=== PATIENT | female | born 1955 | race Caucasian/White ===

== ENCOUNTER 2019-05-29 02:26 | Inpatient (IN) | payer OTHER ==
[~2019-05-29] VITALS: Ht 162.5 cm; Wt 63.5 kg
[2019-05-29] MEDS ORDERED: VITAMIN D5000 UNI1 PO (02:58)
[2019-05-29] MEDS ORDERED: BRAIN MIGHT-DH1 EACH PO (02:58)
--- NOTE | 2019-05-29 08:55 | NUR ---
MORRIS JUAREZ a 63 year old F admitted via stretcher from the ADMITTING as a emergency 72 hr. hold admission. Arrived on unit at 0855. ALLERGIES: IVP DYE, DOXYCYCLINE, IODINE, LATEX, SILVER SULFADIAZINE, MOXIFLOXACIN, TETRACYCLINES. Vital signs are: 98.4-91-17 138/76 SPO2 99%RA. The client signed the following forms with stated understanding: Authorization For The Release of Medical Information, Clothing List, Consent and Release Forms/Receipt of Rights, Acknowledgement of Advance Directive Information, Behavioral Health Consent Form, and Informed Consent of Medications. Admitted under the services of Dr. ADRIENNE MYERS,[facility]. A search was conducted and hazardous articles were removed. Client was oriented to the unit. MAT GUTIERREZ
--- NOTE | 2019-05-29 09:06 | NUR ---
DR. GABRIEL NOTIFIED OF NEW ADMISSION, ALL MEDICATIONS AND DIAGNOSIS UPDATED FOR REVIEW. PATIENT WILL BE UNDER THE CARE OF DR. GABRIEL.
[2019-05-29 09:18] VITALS: BP 138/76
--- NOTE | 2019-05-29 12:27 | NUR ---
psychosocial hx completed this date
--- NOTE | 2019-05-29 16:01 | NUR ---
PM/LEISURE SKILLS/MUSIC PT ATTENDED AND PARTICIPATED IN GROUP BY PAINTING AND LISTENING TO MUSIC. PT PLEASANT AND ON TASK ALTHOUGH PT DID EXPRESS CONFUSION BY FORGETTING SOME WORDS IN CONVERSATION. PT WILL CONTINUE TO ATTEND AND PARTICIPATE IN FUTURE RGOUP SESSIONS TO BEST OF ABILITY.
[2019-05-29 17:05] LABS: BILIRUBIN NEGATIVE (NEGATIVE); BLOOD NEGATIVE (NEGATIVE); CLARITY CLEAR (CLEAR); COLOR YELLOW (YELLOW); GLUCOSE NEGATIVE (NEGATIVE); KETONE NEGATIVE (NEGATIVE); LEUKO ESTERASE NEGATIVE (NEGATIVE); NITRITE NEGATIVE (NEGATIVE); PH 5.5 (5.0-9.0); SPECIFIC GRAVITY 1.025 (1.005-1.030)
[2019-05-29 17:13] LABS: BACTERIA 1+; EPITHELIAL CELLS 21-30; MUCOUS 2+
[2019-05-29 19:52] VITALS: BP 125/68
--- NOTE | 2019-05-29 21:36 | NUR ---
Patient alert to self only with confusion. ST/LT memory deficits noted. No signs of any hallucinations noted at this time. Patient compliant with medications without any difficulty. Provide 1:1 for emotional support. Redirected/reoriented when needed/appropriate. Plan to continue medication compliance and continue to provide emotional support. Also continue to redirect/reorient when needed/appropriate. Q 15 minute safety checks continued and maintained. See [facility] flowsheet for further documentation.
--- NOTE | 2019-05-30 00:32 | NUR ---
24 HR chart check completed.
--- NOTE | 2019-05-30 05:07 | NUR ---
Patient slept approx. 6 hours throughout shift. Q 15 minute safety checks throughout shift.
[2019-05-30 06:11] LABS: BASO % 0.3 % (0.0-1.0); EOS # 0.1 10*3/uL (0.0-0.4); EOS % 1.4 % (1.0-4.0); HEMATOCRIT 36.9 % (37.0-47.0); HEMOGLOBIN 12.4 g/dl (12.0-16.0); LYMPH # 3.3 10*3/uL (1.3-4.4); LYMPH % 45.9 % (27.0-41.0); MEAN CELL VOLUME 97.6 fl (81.0-99.0); MEAN CORPUSCULAR HGB 32.8 pg (27.0-31.0); MEAN CORPUSCULAR HGB CONC 33.6 g/dl (33.0-37.0); MONO # 0.7 10*3/uL (0.1-1.0); MONO % 9.7 % (3.0-9.0); NEUT % 42.4 % (47.0-73.0); PLATELET COUNT AUTOMATED 286 10*3/uL (130-400); RED BLOOD COUNT 3.78 10*6/uL (4.10-5.10); RED CELL DISTRI WIDTH 12.3 % (0-14.5); WHITE BLOOD COUNT 7.2 10*3/uL (4.8-10.8)
[2019-05-30 06:28] LABS: ALBUMIN 3.5 gm/dl (3.1-4.5); BUN 12 mg/dl (7-24); CHLORIDE 105 mmol/L (98-107); CHOLESTEROL 205 mg/dL (<200); CREATININE 0.69 mg/dL (0.55-1.02); POTASSIUM 3.7 mmol/L (3.5-5.1); SGOT/AST 28 IU/L (3-35); SGPT/ALT 29 U/L (12-78); SODIUM 140 mmol/L (136-145); TRIGLYCERIDES 146 mg/dl (<150); VLDL CHOLESTEROL 29 mg/dL (6-40)
[2019-05-30 06:38] LABS: ALKALINE PHOSPHATASE 46 U/L (45-117); HDL CHOLESTEROL 36 mg/dl (40-60); LDL CHOLESTEROL 140 mg/dL (9-159); TOTAL PROTEIN 6.4 gm/dL (6.4-8.2)
[2019-05-30 07:30] LABS: VITAMIN D, 25-HYDROXY 41.2 ng/mL (30-100)
[2019-05-30 08:01] VITALS: BP 127/63
--- NOTE | 2019-05-30 10:44 | NUR ---
P- ALERT TO SELF ONLY; CONFUSION AND ST/LT MEMORY DEFICITS NOTED. TEARFUL AT TIMES. I- ASSESS MOOD, ORIENTATION, SI/HI, HALLUCINATIONS, DELUSIONS OR PAIN. 1:1 THERAPEUTIC INTERACTION WITH EMOTIONAL SUPPORT AND VENTILATION OF FEELINGS PROVIDED. PROVIDE WITH MEDICATIONS ON TIME WITH EDUCATION ON EACH. OFFER COPING TECHNIQUES. ENCOURAGE SOCIALZIATION WITH PEERS AND STAFF. REORIENT FREQUENTLY WHEN CONFUSION IS NOTED. ENCOURAGE TO ATTEND/PARTICIPATE IN GROUP THERAPIES FOR EMOTIONAL SUPPORT AND SOCIALIZATION. R- REMAINS ALERT TO PERSON EVEN WITH REORIENTATION PROVIDED. WHEN ASSESS IF ALERT TO TIME, PLACE OR SITUATION PT RESPONDED WITH "OH, I JUST CANT EVER REMEMBER THOSE THINGS". ST/LT MEMORY DEFICITS. PT STATES THAT SHE IS IN A VERY GOOD MOOD TODAY, SHE JUST IS READY TO GO HOME TO HER . PT BECAME TEARFUL WHEN TALKING ABOUT HER AND SAID SHE REALLY MISSES HIM AND READY TO GO HOME TO HIM. 1:1 THERPEUTIC INTERACTION EFFECTIVE. MED COMPLIANT. PT UTILIZE DEEP BREATHING WHEN TEARFUL. ATTEND/PARTICIPATE IN GROUP THERAPY. INTERACTIVE WITH PEERS AND STAFF. GAIT STEADY WHILE AMBULATING. DENIES SI/HI, HALLUCINATIONS, OR PAIN. NO S/S OF INTERACTING WITH INTERNAL STIMULI. NO DELUSIONAL THOUGHT PROCESS NOTED. NO S/S OF DSITRESS NOTED. RESPS EVEN AND UNLABORED ON ROOM AIR. MAKES NEEDS KNOWN. EATING AND DRINKING ADEQUATELY. P- ASSESS MOOD, ORIENTATION, HALLUCINATIONS, DELUSIONS, SI/HI OR PAIN EVERY SHIFT. PROVIDE WITH MEDICATIONS ON TIME WITH EDUCATION ON EACH. ENCOURAGE TO ATTEND/PARTICIPATE IN GROUP THERAPY FOR EMOTIONAL SUPPORT AND SOCIALIZATION. PROVIDE 1:1 THERAPEUTIC INTERACTION WITH EMOTIONAL SUPPORT AND VENTILATION OF FEELINGS WHEN NECESSARY. ENCOURAGE TO UTILIZE COPING TECHNIQUES WHEN TEARFUL. Q15 MINUTE CHECKS MAINTAINED FOR SAFETY.
--- NOTE | 2019-05-30 12:24 | NUR ---
AM GROUP PT ATTENDED AND PARTICIPATED TO BEST OF PT ABILITY. PT IN NEED OF ASSISTANCE WITH SPELLING PT FORGETTING HOW TO SPELL AND BEGAN SPELLING "WATER" WHEN SHE MEANT TO RIGHT "FAMILY" AND ASKED HOW TO SPELL ALL OF THE WORDS DURING ACTIVITY. PT PLEASANT AND ON TASK AT THIS TIME STATING "I EMJOY THIS IT IS RELAXING" PT WILL CONITNUE TO ATTEND AN DPARTICIPATE TO BEST OF ABILITY IN FUTURE GROUP SESSIONS.
--- NOTE | 2019-05-30 12:26 | NUR ---
VIT. B12 GIVEN IN R DELTOID PER ORDER. PT TOLERATED VERY WELL.
--- NOTE | 2019-05-30 13:47 | NUR ---
Shift chart check completed.
[2019-05-30 20:00] VITALS: BP 139/78
--- NOTE | 2019-05-30 21:24 | NUR ---
24 HR chart check completed.
--- NOTE | 2019-05-30 22:43 | NUR ---
P-CONFUSION I-ENCOURAGE VENTILATION OF FEELINGS & PROVIDE EMOTIONAL SUPPORT. ADMINISTER MEDS, MONITOR SLEEP. R-MOOD IS STABLE & PLEASANT. ALERT TO PERSON ONLY. REMAINS CONFUSED DESPITE REORIENTATION & STATED, "I JUST CANT REMEMBER THAT STUFF". SHORT/FCI MEMORY DEFICITS. STATED THAT SHE "FEELS MUCH BETTER & MY MOOD IS GREAT. I JUST WANT TO GO HOME." ATE HS SNACK. COMPLIANT WITH MEDS. INDEPENDENT. ABLE TO MAKE NEEDS KNOWN. SOCIALIZING PLEASANTLY WITH PEERS. P-CONTINE TO MONITOR & PROVIDE PHYSICAL ASSISTANCE & EMOTIONAL SUPPORT NEEDED.
--- NOTE | 2019-05-31 00:59 | NUR ---
PT AWAKE AT THIS TIME. INFORMED STAFF THAT SHE "COULDNT SLEEP DUE TO NOISE & COMMOTION FROM 2 MALE PATIENTS. I JUST WANT TO LEAVE". PT TEARFUL WITH NOTED ANXIETY. REASSURANCE PROVIDED TO PT REGARDING HER SAFETY & SHE WAS RECEPTIVE. OFFERED & RECEIVED ATIVAN 1 MG PO @ 0055.
--- NOTE | 2019-05-31 04:39 | NUR ---
ATIVAN WAS EFFECTIVE & PT HAS SLEPT PAST 0145
--- NOTE | 2019-05-31 07:44 | NUR ---
PATIENT SITTING IN DINING ROOM WITH PEERS, EATING BREAKFAST. NO S/S OF DISTRESS NOTED. RESPS EVEN AND UNLABORED ON ROOM AIR.
[2019-05-31 08:00] VITALS: BP 128/72
--- NOTE | 2019-05-31 08:00 | NUR ---
Treatment Plan meeting with Dr. Fields, RN, AT, SW and Insurance Adjustor. Plan for discharge at the end of the week, beginning of next week. Pt. will return home at discharge.
--- NOTE | 2019-05-31 08:33 | NUR ---
Nursing screen and Occupational Therapy referral received. Thank you. Lauren Elmore OTR/L
--- NOTE | 2019-05-31 09:12 | NUR ---
PHYSICAL THERAPY Nursing screen received and chart reviewed. Physical therapy referral received. Thank you. Rahel Alva,PT,DPT.
--- NOTE | 2019-05-31 09:58 | NUR ---
Met with pt this AM as pt was tearful. Pt stated that she was missing her home and her . Empathized with pt and offered support. Confirmed to pt that she would be at [facility] for only a few days. Pt was agreeable to this account underwriter calling pt's to see when he plans on visiting. Left a voicmail message for him and informed pt of this. Sat with pt as she shared about her and her marriage. Pt calmed and voiced understanding that she will discharge in a vew days. Noted that pt has some short-term memory loss. However, she is aware that she is in the hospital.
--- NOTE | 2019-05-31 11:22 | NUR ---
CLINICALS FAXED TO [place] AT [phone] FOR AUTHORAZATION. WILL WAIT FOR REPLY.
--- NOTE | 2019-05-31 11:38 | NUR ---
AM GROUP/EXERCISE AND PARACHUTE PT ATTENDED AND PARTICIPATED IN MORNING GROUP THERAPY. PT EXHIBITED MILD CONFUSION BUT WAS PLEASANT AND ON TASK
--- NOTE | 2019-05-31 12:51 | NUR ---
SPEECH PATHOLOGY Nursing screen completed. This dept. will be available for consult if needs arise. CALLI CAMACHO MSCCC-HISTOPATHOLOGIST
--- NOTE | 2019-05-31 13:06 | NUR ---
Shift chart check completed.
--- NOTE | 2019-05-31 13:08 | NUR ---
P- ALERT TO NAME ONLY. CONFUSION AND ST/LT MEMORY DEFICITS NOTED. TEARFUL AT TIMES. PT EXPRESSING THAT SHE REALLY MISSES HER AND READY TO GO HOME. I- ASSESS MOOD, ORIENTATION, HALLUCINATIONS, DELUSIONS OR PAIN. REORIENT FREQUENTLY WHEN CONFUSION IS NOTED. PROVIDE MEDICATIONS ON TIME WITH EDUCAITON ON EACH. 1:1 THERAPEUTIC INTERACTION WITH EMOTIONAL SUPPORT AND VENTILATION OF FEELINGS PROVIDED. ENCOURAGE TO UTILIZE TAUGHT COPING TECHNIQUES. REASSURE PATIENT FREQUENTLY. R- ALERT TO NAME ONLY. WHEN ASSESS ORIENTATION ON DATE OF , PLACE, TIME AND SITUATION PATIENT STATED "I'M SORRY, I REALLY JUST DONT KNOW". REORIENTATION EFFECTIVE FOR A SHORT AMOUNT OF TIME. PT STATES HER MOOD IS GOOD, SHE JUST REALLY WOULD LIKE TO GO HOME TO HER . PT BECOMES TEARFUL WHEN EXPRESSING WANTING TO GO HOME AND EXPRESSING HOW SHE MISSES HER . PT DENIES SI/HI, HALLUCINATIONS OR PAIN. NO S/S OF INTERACTING WITH INTERNAL STIMUI. NO DELUSIONAL THOUGHT PROCESS NOTED. NO S/S OF DISTRESS NOTED. RESPS EVEN AND UNLABORED ON ROOM AIR. EATING AND DRINKING ADEQUATELY. GAIT STEADY WHILE AMBULATING. MAKES NEEDS KNOWN. 1:1 THERAPEUTIC INTERACTION, DEEP BREATHING, AND REASSURANCE EFFECTIVE WHEN TEARFUL. INTEARCTING WITH PEERS AND STAFF. ATTEND/PARTICIPATE IN GROUP THERAPY. MED COMPLIANT. P- ASSESS MOOD, ORIENTATION, SI/HI, HALLUCINATINOS, DELUSIONS OR PAIN EVERY SHIFT. PROVIDE MEDICATIONS ON TIME WITH EDUCATION ON EACH. 1:1 THERAPEUTIC INTERACTION WITH EMOTIONAL SUPPORT AND VENTILATION OF FEELINGS PROVIDED WHEN NECESSARY. ENCOURAGE TO UTILIZE COPING TECHNIQUES. REASSURE FREQUENTLY. Q15 MINUTE CHECKS MAINTAINED FOR SAFETY.
--- NOTE | 2019-05-31 13:37 | NUR ---
Occupational Therapy referral received and screem completed. Patient admitted to [facility] as an involuntary admission with brief psychotic disorder. Patient was observed independently moving throughout the 3N UNIT without a device. Nursing reports she is independent in ADLs. At this time no further OT indicated. Discharge OT referral. Thank you. Lauren Elmore OTR/Shreya
--- NOTE | 2019-05-31 13:37 | NUR ---
PHYSICAL THERAPY Physical therapy evaluation attempted, screen complete. Patient is independently walking throughout U and does not require skilled PT services at this time. Discharge PT orders. Thank you. Rahel Alva,PT,DPT
--- NOTE | 2019-05-31 15:22 | NUR ---
Spoke with pt's Glen by phone. Glen expressed concern about pt's sudden change in cognition. Glen shared that his brother is a physician and. per Glen, believes that pt's cognitive decline in abnormal for dementia. This ticket writer and Glen were discussing this further when Glen stated that he had an incoming call from his brother. Will relay Glen's concerns to Dr Fields in treatment team chris and will plan on speaking with Glen again at a different time.
--- NOTE | 2019-05-31 16:48 | NUR ---
PM GROUP/LEISURE SKILLS PT ATTENDED AND PARTICIPATED IN GROUP. PT UPSET PRIOR TO BEGINNING GROUP STATING "I JUST WANT TO GO HOME, I WILL NEVER COME TO THIS PLACE AGAIN. IT IS SO FAR AWAY FROM HOME. THIS STAFF AND SHANTEL ABLE TO CALM PT. PT ABLE TO FOCUS ON ACTIVITY BUT DISPLAYED CONFUSION ASKING HOW TO PAINT AND WHERE TO START. THIS STAFF ASSISTED IN DIRECTING PT. PT ON TASK REST OF GROUP AND WILL CONTINUE TO ATTEND AND PARTICIPATE IN FUTURE GROUP SESSIONS.
--- NOTE | 2019-05-31 19:40 | NUR ---
24 HR chart check completed.
[2019-05-31 19:56] VITALS: BP 135/68
--- NOTE | 2019-05-31 20:52 | NUR ---
EVENING GROUP PT ATTENDED AND PARTICIPATED IN GROUP. PT PLEASANT AND ON TASK BUT EXPRESSES CONFUSION AT TIMES. PT EASILY REDIRECTED. PT WILL CONTINUE TO ATTEND AND PARTICIPATE IN FUTURE RGOUP SESSIONS.
--- NOTE | 2019-05-31 21:26 | NUR ---
P--CONFUSION/FEAR I--REORIENTED TO PLACE,TIME AND DATE. SHOWED HER WHERE ON THE WALL THE DATE IS. MEDICATE AND EDUCATE. REVIEWED COPING SKILLS. EMOTIONAL SUPPORT PROVIDED R- I DON'T KNOW WHAT THE DATE OR YEAR IS. THANKS FOR SHOWING ME THE WALL. I AM TIRED AND I WANT TO GO TO BED. LAST NIGHT WAS SO LOUD I DIDN'T GET TO SLEEP MUCH. P--OFFER EMOTIONAL SUPPORT. MONITOR FOR BEHAVIOR/MOOD CHANGES. MONITOR Q 15 MINUTES AND PRN FOR SAFETY.
--- NOTE | 2019-06-01 00:12 | NUR ---
24 HR chart check completed.
--- NOTE | 2019-06-01 03:28 | NUR ---
intermittent sleeping. periods of tearfullness. noise on unit effecting sleep
--- NOTE | 2019-06-01 05:22 | NUR ---
SLEPT APPROX 4 BROKEN HOURS. STATES IS JUST AFRAID THOSE "GUYS " YELLING. EMOTIONAL SUPPORT PROVIDED
--- NOTE | 2019-06-01 05:55 | NUR ---
C/O NAUSEA. SITTING UP IN QUIET ROOM. GOING TO TRY EDWAR MANUEL
[2019-06-01 07:44] VITALS: BP 140/65
--- NOTE | 2019-06-01 07:45 | NUR ---
Patient sittting quietly with no c/o discomfort. Respirations easy and regular. Vital signs stable. No overt distress. SOTO HARPER
--- NOTE | 2019-06-01 10:12 | NUR ---
PT PLEASANT, MEDICATION COMPLIANT, ST/LT MEMORY DEFICITS, NO SI/HI OR DELUSIONS NOTED. PT AMBULATES WITH STEADY GAIT AND COMMUNICATES NEEDS WELL. PT BECAME TEARFUL WITH CONVERSTATION STATING THAT SHE MISSES HER , AND DOESN'T KNOW WHAT ALL IS GOING ON BUT AFTER 44 YEARS OF MARRIAGE SHE JUST NEEDS HIM TO BE WITH HER. SHE IS UNAWARE OF DATE, TIME OR SEASON, UNABLE TO RECALL LOCATION EXCEPT THAT SHE IS NOT AT HOME. NO DELUSIONS OR HALLUCINATIONS PRESENT
--- NOTE | 2019-06-01 10:12 | NUR ---
PT OFF UNIT FOR CT SCAN
--- NOTE | 2019-06-01 10:16 | NUR ---
PT RETURNED TO UNIT FROM CT WITH ESCORTS
--- NOTE | 2019-06-01 11:41 | NUR ---
AM GROUP/LIGHT AND MUSIC THERAPY PT ATTENDED AND PARTICIPATED IN MORNING GROUP THERAPY. PT IS PLEASANTLY CONFUSED. PT REQUIRES MUCH INSTRUCTION AND IS UNSURE OF ANY TASK THAT SHE PERFORMS.
--- NOTE | 2019-06-01 12:09 | NUR ---
PT WEEPY, TEARFUL WITH INTERACTION DUE TO BEING CONFUSED TO WHY SHE IS HERE, PT ALSO STATED SHE JUST NEEDS HER AND HE WILL PROVE SHE IS OK. PT APOLOGETIC FOR BEING SO UPSET, HANDS TREMBLING. PT ASKED IF THERE WAS SOMETHING THAT COULD HELP HER ATIVAN 1 MG TO BE GIVEN PO FOR ANXIETY
--- NOTE | 2019-06-01 13:02 | NUR ---
PT CALMED FOR SHORT PERIOD OF TIME WITH 1:1 MUSIC AND DISTRACTION. SHE PROCEEDED TO HAVE ANXIETY WHEN LEFT WITHOUT CONSTANT 1:1, HANDS NOTED TO TREMOR, PICKING AT HER FINGER NAILS, TEARS COMING DOWN HER FACE. PT ANXIETY SEEMS TO BE DUE TO NOT HAVING SPOUSE AROUND TO DIRECT HER AND BEING AWARE OF HER LEVEL OF CONFUSION. PT DOES PRESENT WELL UNTIL ASKED SPECIFICS ABOUT MEMORY SUCH TIME DATE OR WHAT SHE LIKES TO DO. FREQUENTLY RESPONDS WITH I DON'T KNOW AND CRIES. PT HAS INQUIRED 3 TIMES SINCE 7AM ABOUT HOW LONG SHE HAS TO STAY AND WHERE WILL SHE GO FROM HERE. PT WILL START A SENTENCE AND FORGET WHERE SHE WAS GOING WITH IT LOSING WORDS WHILE TALKING. EVEN WITH NO INTERUSPTIONS. CONTINUE TO REDIRECT AND REORIENT NEEDED
--- NOTE | 2019-06-01 14:00 | NUR ---
PT SEEN BY AJ CANTRELL NO COMPLAINTS AT THIS TIME
--- NOTE | 2019-06-01 14:40 | NUR ---
PT COMPLAINT OF SEEING SMALL BLACK SPECS WHILE DOING CRAFT. PT COMPLAINED TO NURSE STATING THAT IT HAD BEEN GOING ON 3 DAYS. THIS NURSE FOLLOWED UP WITH PT IN WHICH SHE STATED SHE HAS BEEN HAVING THE SPECKLES IN HER FOOT (TOUCHING HER EYES) FOR A YEAR. PT HAD CT EARLIER IN SHIFT WHICH WAS NEGATIVE, EYES PERRLA. PT CONTINUES WITH ACTIVITIES, REFUSED TO REST IN LOW STIMULATION AREA, STATED HER ANXIETY WEAS BETTER. BILLBOARD MECHANIC WAS NOTIFIED OF ALL ASPECTS
--- NOTE | 2019-06-01 15:28 | NUR ---
Spoke with pt's Glen and provided update. Glen stated that pt was to begin services through [facility] but was then admitted to the [facility]
--- NOTE | 2019-06-01 15:54 | NUR ---
PM GROUP/ART AND MUSIC PT ATTENDED AFTERNOON GROUP THERAPY AND PARTICIPATED IN ALL ACTIVITIES. PT SEEMED LESS CONFUSED THIS AFTERNOON. PT WAS TALKATIVE AND ON TASK.
[2019-06-01 19:52] VITALS: BP 132/64
--- NOTE | 2019-06-01 20:56 | NUR ---
ATIVAN GIVEN FOR C/O ANXIETY. STATES USING COPING TECHNIQUES TODAY HELPED..
--- NOTE | 2019-06-02 01:05 | NUR ---
CLIENT RESTING QUIET SINCE GETTING ATIVAN EARLIER.
--- NOTE | 2019-06-02 04:36 | NUR ---
24 HR chart check completed.
--- NOTE | 2019-06-02 05:54 | NUR ---
SLEPT WELL PAST 2200PM. UP TO VOID THEN BACK TO SLEEP. MOVED SELF IN BED.
--- NOTE | 2019-06-02 06:36 | NUR ---
CURRENTLLY GETTING SHOWER. STATES SHE SLEPT GREAT.
[2019-06-02 07:41] VITALS: BP 125/71
--- NOTE | 2019-06-02 08:00 | NUR ---
Treatment Plan meeting with Dr. Fields, RN, AT, and Bag Machine Operator Helper. Plan for discharge Friday. Pt. will at this point return home.
--- NOTE | 2019-06-02 10:56 | NUR ---
PER FAX FROM [facility] IP APPROVED 05-29-10. NRD 06/04. AUTHR NUMBER [id number]
--- NOTE | 2019-06-02 11:44 | NUR ---
AM GROUP PT ATTENDED AND PARTICIPATED IN MORNING GROUP THERAPY. PT EXHIBITS MILD CONFUSION BUT IS PLEASANT AND ON TASK. PT EXHIBITED NO ANXIETY WHILE IN GROUP
--- NOTE | 2019-06-02 12:58 | NUR ---
PT IS AWARE TO PERSON, HOSPITAL, DATE OR SEASON UNKNOWN. EASILY REDIRECTED BY STAFF, PT ENJOYING ACTIVITIES AND MUSIC, SHE INTERACTS WITH PEERS DOING CROSS WORD PUZZLES, GAIT IS STEADY. SHE NEEDS REMINDED OF UNIT SCHEDULE. NO SI/HI OR DELUSIONS NOTED AT THIS TIME. WILL CONITNUE TO MONITOR
--- NOTE | 2019-06-02 15:19 | NUR ---
PT HAS HAD 2 EPISODES OF BEING WEEPY THIS SHIFT THE 1ST WAS TRIGGERED BY A PHONE CALL FROM SPOUSE, AND THE 2ND EPISODE WAS BECAUSE SHE WAS WALKING DOWN THE HALLWAY BY HERSELF AND STATED THAT SHE MISSED HER HOME
--- NOTE | 2019-06-02 15:36 | NUR ---
PM GROUP PT ATTENDED AND PARTICIPATED IN AFTERNOON GROUP THERAPY. PT PAINTED A BIRDHOUSE AND WORKED A WORDSEARCH PUZZLE. PT IS UNSURE OF HERSELF AND HER ABILITIES AND NEEDS MUCH DIRECTION.
[2019-06-02 19:36] VITALS: BP 106/83
--- NOTE | 2019-06-02 21:11 | NUR ---
Patient alert to self only with confusion. ST/LT memory deficits noted. No signs of any hallucinations noted at this time. Patient isolative to room. Patient compliant with medications without any difficulty. Provide 1:1 for emotional support. Redirected/reoriented when needed/appropriate. Plan to continue medication compliance and continue to provide emotional support. Also continue to redirect/reorient when needed/appropriate and continue to encourage more interaction with staff and other patients. Q 15 minute safety checks continued and maintained. See [facility] flowsheet for further documentation.
--- NOTE | 2019-06-03 00:37 | NUR ---
24 HR chart check completed.
[2019-06-03 07:44] VITALS: BP 127/71
[2019-06-03] MEDS ORDERED: RIVASTIGMINE T1.5 M1 PO (10:38)
[2019-06-03] MEDS ORDERED: MEMANTINE HCL10 MG PO (10:38)
--- NOTE | 2019-06-03 11:05 | NUR ---
DR BURNS UPDATED ON PT DISCHARGE AT 1230. STATED "OK"
--- NOTE | 2019-06-03 11:30 | NUR ---
DR BOLAND ON UNIT TO ASSESS PT. UPDATED PT WILL BE L;REBECCA AT 1233
--- NOTE | 2019-06-03 11:46 | NUR ---
AM GROUP PT ATTENDED MORNING GROUP THERAPY AND IS VERY RELIEVED AT BEING DISCHARGED FROM THE UNIT THIS AFTERNOON. PT WAS FRETFUL OVER WHAT SHE WOULD WEAR AND IF HER THINGS WERE PACKED.
--- NOTE | 2019-06-03 12:00 | NUR ---
THIS NURSE CALLED DR BURNS AND STATED IT IS FINE TO CONTINUE VITAMIN D.
--- NOTE | 2019-06-03 12:52 | NUR ---
PT OFF UNIT AT THIS TIME. PT DISCHARGED IN THE CARE OF HER . ESCORTED TO MAIN ENTRANCE BY THIS NURSE AND A GAUGE OPERATOR. A&O X3. STABLE MOOD. BELONGINGS SENT WITH PT.
== END 2019-06-03 12:52 | disposition home or self-care (01) | DRG 42 ==
LOC: 3N 02:26
PROVIDERS: Family Medicine; ADMIT Psychiatry & Neurology Psychiatry
DX: G30.9 Alzheimer's disease, unspecified (principal); F23 Brief psychotic disorder; G93.41 Metabolic encephalopathy; N39.0 Urinary tract infection, site not specified; K57.90 Diverticulosis of intestine, part unspecified, without perforation or abscess without bleeding; I10 Essential (primary) hypertension; G51.0 Bell's palsy; E55.9 Vitamin D deficiency, unspecified; K44.9 Diaphragmatic hernia without obstruction or gangrene; K50.919 Crohn's disease, unspecified, with unspecified complications; R73.03 Prediabetes; F02.81 Dementia in other diseases classified elsewhere, unspecified severity, with behavioral disturbance; Z82.49 Family history of ischemic heart disease and other diseases of the circulatory system; Z88.8 Allergy status to other drugs, medicaments and biological substances; Z88.1 Allergy status to other antibiotic agents; Z91.041 Radiographic dye allergy status; Z91.040 Latex allergy status; Z90.49 Acquired absence of other specified parts of digestive tract; Z90.710 Acquired absence of both cervix and uterus; Z79.899 Other long term (current) drug therapy